=== PATIENT | male | born 1995 | race Caucasian/White ===

== ENCOUNTER → 2019-12-29 | Outpatient (CLI) | payer BC | LOC: COL.RAD 12-11 13:00 | DX: N13.5 Crossing vessel and stricture of ureter without hydronephrosis (principal) | CPT/HCPCS: Q9967 ==

== ENCOUNTER → 2022-12-02 | Outpatient (CLI) | payer BC | LOC: COL.RAD 07:30 | DX: G43.909 Migraine, unspecified, not intractable, without status migrainosus (principal) | CPT/HCPCS: A9575 ==